=== PATIENT | male | born 1960 | race Caucasian/White ===

== ENCOUNTER → 2021-04-25 | Outpatient (CLI) | payer BC ==
--- NOTE | 2021-04-25 10:58 | REPPI ---
INDICATION: N20.0 KIDNEY STONE COMPARISON: None. TECHNIQUE: Supine view of the abdomen and pelvis. FINDINGS: Evaluation of the urinary tract system is limited due to overlying bowel gas and technique. Small 2 mm left intrarenal calculus cannot be excluded. Calcifications in the pelvis likely represent phleboliths. Evidence for prior cholecystectomy. Bowel gas pattern is nonspecific. Skeletal structures demonstrate age-related degenerative changes to the pelvis and hips and lower lumbar spine. IMPRESSION: Limited evaluation of the urinary tract system. Cannot exclude small 2 mm nonobstructing intrarenal calculi. <Electronically signed by Douglas Cruz > 04/25/21 1051
== END ==
LOC: M PLAIMG 10:10
PROVIDERS: ATTEND Nurse Practitioner Family
DX: N20.0 Calculus of kidney (principal)

== ENCOUNTER → 2022-05-29 | Outpatient (REF) | payer BC, OTHER ==
[2022-05-29 13:39] LABS: APPEARANCE, URINE CLEAR (CLEAR); BACTERIA, URINE AUTO NEGATIVE (NEGATIVE); BILIRUBIN, URINE AUTO NEGATIVE (NEGATIVE); BLOOD, URINE BLOOD NEGATIVE (NEGATIVE); COLOR, URINE YELLOW (YELLOW); GLUCOSE, URINE (UA) AUTO NEGATIVE (NEGATIVE); KETONE, URINE AUTO NEGATIVE (NEGATIVE); LEUKOCYTE ESTERASE, URINE AUTO NEGATIVE (NEGATIVE); NITRITE, URINE AUTO NEGATIVE (NEGATIVE); PROTEIN, URINE AUTO NEGATIVE (NEGATIVE); RBC, URINE AUTO 0 /HPF (0-3); SPECIFIC GRAVITY URINE AUTO 1.008 (1.002-1.035); SQUAMOUS EPITHELIAL CELL UR AU 0 /HPF (0-6); UROBILINOGEN, URINE AUTO 0.2 mg/dL (0.0-2.0); WBC, URINE AUTO 1 /HPF (0-3)
== END ==
LOC: M SMT 13:07
PROVIDERS: ATTEND Urology
DX: N40.0 Benign prostatic hyperplasia without lower urinary tract symptoms (principal)